=== PATIENT | male | born 1945 | race Caucasian/White ===

== ENCOUNTER 2018-02-25 04:54 | Emergency (ER) | payer OTHER, MEDICARE ==
--- NOTE | 2018-02-25 05:14 | ED GENERAL ADULT ---
History of Present Illness General Chief Complaint: General Adult Stated Complaint: "TOUNGE SWOLLEN CANT SWOLLOW" Source: patient Exam Limitations: no limitations Vital Signs & Intake/Output Vital Signs & Intake/Output Vital Signs Date Time Temp Pulse Resp B/P B/P Pulse O2 O2 Flow FiO2 Mean Ox Delivery Rate 02/25 0508 97.0 73 22 163/84 98 Room Air Allergies Coded Allergies: diazepam (UNKNOWN 02/25/18) Triage Note: PER PT TONGUE SWOLLEN TAKES CHLORTHALIDONE 25 MG BUT PILLS LOOK DIFFERENT REPORTS HX OF MOUTH CANCER AND HAS OPTURATOR IN PLACE. DIFF SPEAKING NO RESP DISTRESS NO STRIDOR Triage Nurses Notes Reviewed? yes Onset: Gradual Duration: hour(s): Timing: recent history Injury Environment: home Severity: moderate Associated Symptoms: "tongue swelling" HPI: 73 yo gentleman h/o angioedema to michelle inhibitors, h/o oropharyngeal cancer w/ dentures/obdurator presents with tongue swelling that started last night. He notes that he refilled his chlorthalidone, and noted that the pills are a different color (green) rather than their previous color (white). He then noted that he felt his tongue swelling and throat "felt tight." He had no wheezing, dyspnea, difficulty swallowing, Past History Travel History Traveled to [place] past 21 day No Medical History Any Pertinent Medical History? 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 Psychosocial History Who do you live with Spouse Services at Home None What is your primary language Nepali Tobacco Use: Quit >30 days ago Family History Hx Contributory? No Review of Systems Review of Systems Constitutional: Denies: see HPI. Physical Exam Physical Exam General Appearance: well developed/nourished Comments: Review of Systems - except as otherwise noted in HPI Review of Systems Constitutional:no symptoms. EENTM:no symptoms. Respiratory:no symptoms. Cardiovascular:no symptoms. GI:no symptoms. Genitourinary:no symptoms. Musculoskeletal:no symptoms. Skin:no symptoms. Neurological/Psychological:no symptoms. Hematologic/Endocrine:no symptoms. Immunologic/Allergic:no symptoms. All Other Systems: Reviewed and Negative Physical Exam Physical Exam General Appearance: well developed/nourished, no apparent distress Head: atraumatic, normal appearance Eyes: Bilateral: normal appearance. Ears, Nose, Throat: normal pharynx, mild tongue swelling, no stridor. no tonsillar swelling Neck: normal inspection, supple, full range of motion Respiratory: normal breath sounds, chest non-tender, no respiratory distress, quiet respiration, lungs clear Cardiovascular: regular rate/rhythm Gastrointestinal: normal bowel sounds, soft, non-tender, no organomegaly Back: normal inspection, normal range of motion Extremities: normal inspection, normal capillary refill, normal range of motion, no edema Neurologic/Psych: no motor/sensory deficits, awake, alert, oriented x 3 Skin: intact, normal color, warm/dry Core Measures ACS in differential dx? No CVA/TIA Diagnosis: No Sepsis Present: No Sepsis Focused Exam Completed? No Progress Differential Diagnoses I considered the following diagnoses in my evaluation of the patient: angioedema vs epiglottitis vs allergic reaction vs other. Plan of Care: Orders Procedure Date/time Status XRY-SOFT TISSUE NECK 02/25 514 Active Diagnostic Imaging: Viewed by Me: Radiology Read. Discussed w/RAD: Radiology Read. Radiology Impression: PATIENT: CHETAN ANDREWS PRESENT AGE: 73 PATIENT ACCOUNT NO: [id number] : 47 LOCATION: [facility] ORDERING PHYSICIAN: Nic Fraire MD SERVICE DATE: 02/25/18 EXAM TYPE: RAD - XRY-SOFT TISSUE NECK EXAMINATION: XR SOFT TISSUE NECK CLINICAL INDICATION: Dysphagia. COMPARISON: None TECHNIQUE: 2 views of the soft tissue neck were obtained. FINDINGS: Soft tissue films of the neck demonstrate a normal larynx, pharynx and upper trachea. No soft tissue swelling or opaque foreign body is demonstrated. The cervical vertebra are in normal alignment. There is mild anterior osteophyte formation. IMPRESSION: Unremarkable age-appropriate soft tissue radiographs of the neck. DICTATED BY: Fernandez Pride MD DATE/TIME DICTATED:02/25/18550 FAMILY MEMBER CARETAKER:NIYAH DATE/TIME TRANSCRIBED:550 CONFIDENTIAL, DO NOT COPY WITHOUT APPROPRIATE AUTHORIZATION. < Electronically signed in Other Vendor System> SIGNED BY: Fernandez Pride MD 02/25/18554 Initial ED EKG: none Departure Departure Disposition: HOME OR SELF CARE Condition: Stable Clinical Impression Primary Impression: Allergic reaction Secondary Impressions: Angioedema Referrals: Yaima HAMILTON,Angelo Mills (PCP/Family) Departure Forms: Customer Survey General Discharge Information Comments 02/25/18, 6:34am... pt reports feeling well, at his baseline, negative soft tissue neck... he shares that he feels comfortable going home... Difficult to discern if diuril was the culprit or something else... also difficult to discern angioedema vs allergic reaction.... I counseled him to stop the diuril. will take 2 days of prednisolone and benadryl RTC... close follow up advised. Critical Care Note Critical Care Note Critical Care Time: non-applicable
--- NOTE | 2018-02-25 05:55 | RADIOLOGY REPORT ---
EXAMINATION: XR SOFT TISSUE NECK CLINICAL INDICATION: Dysphagia. COMPARISON: None TECHNIQUE: 2 views of the soft tissue neck were obtained. FINDINGS: Soft tissue films of the neck demonstrate a normal larynx, pharynx and upper trachea. No soft tissue swelling or opaque foreign body is demonstrated. The cervical vertebra are in normal alignment. There is mild anterior osteophyte formation. IMPRESSION: Unremarkable age-appropriate soft tissue radiographs of the neck.
[2018-02-25] MEDS ORDERED: PREDNISOLO15 MG/5 M4 PO (06:43)
[2018-02-25 07:46] VITALS: BP 143/88
== END 2018-02-25 07:56 ==
LOC: ERH 04:54
DX: T78.40XA Allergy, unspecified, initial encounter (principal); T78.3XXA Angioneurotic edema, initial encounter
CPT/HCPCS: 70360; 96374; 96375; J1100; J1200